=== PATIENT | female | born 1990 | race African-American/Black ===

== ENCOUNTER 2019-02-09 12:50 | Inpatient (IN) | payer MEDICAID ==
[~2019-02-09] VITALS: Ht 162.6 cm; Wt 81.6 kg
[2019-02-09 12:42] VITALS: BP 116/80
[~2019-02-09 12:50] MED LIST: Morphine Sulfate 4mg/ml Inj (IV USE ONLY) IVP ONE
--- NOTE | 2019-02-09 12:53 | Emergency Room Report ---
History of Present Illness General Chief Complaint: Abdominal Pain Source: Patient (Felix Melton) Present Illness HPI 28-year-old female patient presents the ER BIB ambulance complaining of abdominal pain, nausea, vomiting since this morning. Reports abdominal symptoms began this morning and then following eating a bowl of cereal she began to express vomiting and diarrhea symptoms. Denies blood in vomit or stool. Denies coffee-ground emesis. Reports generalized abdominal pain during this time. Reports pain is sharp. Denies radiation of pain symptoms. Denies recent travel outside the country. Denies recent abx use. Denies contacts at home with similar symptoms. Denies fever, chest pain, shortness of breath. Denies drug or marijuana use. Reports occasionally drinking alcohol, no recent alcohol use. Denies dysuria, hematuria, vaginal discharge. Denies vaginal bleeding. Reports last menstrual period was 1 month ago. States is sexually active, denies concern for STI. (Felix Melton) Allergies: Coded Allergies: No Known Allergies (Unverified , 02/09/19) Patient History Past Medical History: see triage record Last Menstrual Period: 01/08/19 Now: No : 1 Para: 1 Reviewed Nursing Documentation: PMH: Agreed; PSxH: Agreed (Felix Melton) Nursing Documentation-PMH Past Medical History: No Stated History (Felix Melton) Review of Systems All Other Systems: negative except mentioned in HPI (Felix Melton) Physical Exam Vital Signs Date Time Temp Pulse Resp B/P (MAP) Pulse Ox O2 Delivery O2 Flow Rate FiO2 02/09/19 12:34 98.8 70 16 112/82 100 Room Air Sp02 EP Interpretation: reviewed, normal General Appearance: well appearing, no apparent distress, alert, GCS 15, non- toxic Head: normocephalic, atraumatic Eyes: bilateral eye normal inspection, bilateral eye PERRL ENT: hearing grossly normal, normal pharynx, no angioedema, normal voice, uvula midline, moist mucus membranes Neck: full range of motion Respiratory: lungs clear, normal breath sounds, no rhonchi, no respiratory distress, no accessory muscle use, no wheezing, speaking full sentences Cardiovascular #1: regular rate, rhythm, no edema Gastrointestinal: soft, no mass, non-distended, no guarding, no pulsatile mass , no rebound, tenderness - Generalized, nonspecific, other - negative Bills Musculoskeletal: back normal, digits/nails normal, gait/station normal, normal range of motion, non-tender Neurologic: alert, oriented x3, responsive, motor strength/tone normal, sensory intact Psychiatric: mood/affect normal Skin: no rash (Felix Melton) Medical Decision Making PA Attestation Dr. Sepulveda is my supervising Physician whom patient management has been discussed with. (Felix Melton) Diagnostic Impression: Primary Impression: Acute colitis Additional Impressions: Vomiting and diarrhea Leukocytosis ER Course Pt. presents to the ED c/o abdominal pain, diarrhea and vomiting. Ddx considered but are not limited to UTI, cholelithiasis, cholecystitis, pancreatitis, appendicitis, diverticulitis, constipation, drug use, colitis, cyclical vomiting syndrome, SBO, influenza, viral syndrome. Begin abdominal pain workup. Provided patient with pain medication. Vital signs: are WNL, pt. is afebrile ORDERS: CBC, CMP, Lipase, UA, CT abdomen pelvis, Zofran, Pepcid and medication. ER COURSE: Provided with IV fluids. CBC elevated WBCs with left shift. CMP unremarkable Lipase WNL Serum HCG negative UA and urine drug screen pending Influenza swab negative Discuss results with patient CT abdomen and pelvis shows colitis, no appendicitis. Discussed results with patient. Will provide patient with antibiotics while in the ER for colitis due to elevated WBCs. Patient has been able to tolerate PO fluids while in the ER without emesis. Will admit patient. Discussed care with supervising physician Dr. Coates, consulted with admitting physician Dr. Shultz by who will admit patient to his service. Patient reports continued pain, provide with additional doses of pain and nausea medication. - Please note that this Emergency Department Report was dictated using [employer] technology software, occasionally this can lead to erroneous entry secondary to interpretation by the dictation equipment. Labs Test 02/09/19 12:57 02/09/19 14:15 White Blood Count 19.7 K/UL (4.8-10.8) Red Blood Count 4.90 M/UL (4.20-5.40) Hemoglobin 13.8 G/DL (12.0-16.0) Hematocrit 43.3 % (37.0-47.0) Mean Corpuscular Volume 88 FL (80-99) Mean Corpuscular Hemoglobin 28.2 PG (27.0-31.0) Mean Corpuscular Hemoglobin Concent 32.0 G/DL (32.0-36.0) Red Cell Distribution Width 14.4 % (11.6-14.8) Platelet Count 363 K/UL (150-450) Mean Platelet Volume 7.0 FL (6.5-10.1) Neutrophils (%) (Auto) % (45.0-75.0) Lymphocytes (%) (Auto) % (20.0-45.0) Monocytes (%) (Auto) % (1.0-10.0) Eosinophils (%) (Auto) % (0.0-3.0) Basophils (%) (Auto) % (0.0-2.0) Differential Total Cells Counted 100 Neutrophils % (Manual) 78 % (45-75) Lymphocytes % (Manual) 12 % (20-45) Monocytes % (Manual) 5 % (1-10) Eosinophils % (Manual) 0 % (0-3) Basophils % (Manual) 1 % (0-2) Band Neutrophils 4 % (0-8) Platelet Estimate Adequate Platelet Morphology Normal Red Blood Cell Morphology Hypochromasia 1+ Sodium Level 139 MMOL/L (136-145) Potassium Level 3.6 MMOL/L (3.5-5.1) Chloride Level 100 MMOL/L (98-107) Carbon Dioxide Level 21 MMOL/L (21-32) Anion Gap 18 mmol/L (5-15) Blood Urea Nitrogen 13 mg/dL (7-18) Creatinine 0.8 MG/DL (0.55-1.30) Estimat Glomerular Filtration Rate > 60 mL/min (>60) Glucose Level 156 MG/DL (74-106) Calcium Level 10.6 MG/DL (8.5-10.1) Total Bilirubin 0.6 MG/DL (0.2-1.0) Aspartate Amino Transf (AST/SGOT) 15 U/L (15-37) Alanine Aminotransferase (ALT/SGPT) 26 U/L (12-78) Alkaline Phosphatase 71 U/L (46-116) Total Protein 9.9 G/DL (6.4-8.2) Albumin 4.5 G/DL (3.4-5.0) Globulin 5.4 g/dL Albumin/Globulin Ratio 0.8 (1.0-2.7) Lipase 124 U/L (73-393) Human Chorionic Gonadotropin, Qual Negative (NEGATIVE) (Felix Melton) ER Course Patient is a 28-year-old female who presented after increased vomiting and diarrhea. Patient had been noted to have multiple episodes of vomiting as well as diarrhea throughout the day. Patient was noted to have elevated white blood count. CT the abdomen pelvis read by radiology showed likely colitis with a nonvisualize appendix.Patient was discussed with Dr. Jabari Pruitt for [facility] for inpatient management due to panel physician (Tha Coates MD) CT/MRI/US Diagnostic Results CT/MRI/US Diagnostic Results : Imaging Test Ordered: CT abdomen pelvis with contrast Impression 1. Underdistention and likely thickening in the colon. Consider some form of colitis in the proper clinical setting. 2. Appendix not identified. (Felix Melton) Last Vital Signs Date Time Temp Pulse Resp B/P (MAP) Pulse Ox O2 Delivery O2 Flow Rate FiO2 02/09/19 12:42 98.6 74 18 116/80 100 Room Air (Felix Melton) Status: improved (Tha Coates MD) Disposition: ADMITTED INPATIENT Condition: Serious Felix Melton Feb 09, 2019 12:53 Tha Coates MD Feb 09, 2019 18:32
[2019-02-09 13:12] LABS: HEMATOCRIT 43.3 % (37.0-47.0); HEMOGLOBIN 13.8 G/DL (12.0-16.0); MEAN CORPUSCULAR VOLUME 88 FL (80-99); PLATELET COUNT 363 K/UL (150-450); RED CELL DISTRIBUTION WIDTH 14.4 % (11.6-14.8); WHITE BLOOD COUNT 19.7 K/UL (4.8-10.8)
[2019-02-09 13:21] LABS: ANION GAP 18 mmol/L (5-15); BLOOD UREA NITROGEN 13 mg/dL (7-18); CALCIUM 10.6 MG/DL (8.5-10.1); CARBON DIOXIDE 21 MMOL/L (21-32); CHLORIDE 100 MMOL/L (98-107); CREATININE 0.8 MG/DL (0.55-1.30); POTASSIUM 3.6 MMOL/L (3.5-5.1); SODIUM 139 MMOL/L (136-145)
[2019-02-09 13:25] LABS: ALANINE AMINOTRANSFERASE 26 U/L (12-78); ALBUMIN 4.5 G/DL (3.4-5.0); ALBUMIN/GLOBULIN RATIO 0.8 (1.0-2.7); ALKALINE PHOSPHATASE 71 U/L (46-116); ASPARTATE AMINO TRANSFERASE 15 U/L (15-37); BILIRUBIN,TOTAL 0.6 MG/DL (0.2-1.0)
[2019-02-09] MEDS ORDERED: Morphine Sulfate 4mg/ml Inj (IV USE ONLY) IVP ONE ×3 (14:45→19:00)
[2019-02-09] MEDS ORDERED: Isovue-300 100ml vial INJ PRN (14:45)
[2019-02-09 14:50] VITALS: BP 128/90
[2019-02-09 16:50] VITALS: BP 119/78
--- NOTE | 2019-02-09 17:29 | Diagnostic Imaging Report ---
EXAM: CT Abdomen and Pelvis With Intravenous Contrast CLINICAL HISTORY: PAIN TECHNIQUE: Axial computed tomography images of the abdomen and pelvis with intravenous contrast. CTDI is 15.91 mGy and DLP is 8 75 mGy-cm. One or more of the following dose reduction techniques were used: automated exposure control, adjustment of the mA and/or kV according to patient size, use of iterative reconstruction technique. COMPARISON: No relevant prior studies available. FINDINGS: Lung bases: Unremarkable. ABDOMEN: Liver: Unremarkable. Gallbladder and bile ducts: No calcified stones. No ductal dilation. Pancreas: Unremarkable. Spleen: Unremarkable. Adrenals: Unremarkable. Kidneys and ureters: Unremarkable. No hydronephrosis. Stomach and bowel: Underdistention and likely thickening in the colon. PELVIS: Appendix: Appendix not identified. Bladder: Unremarkable. Reproductive: Unremarkable. ABDOMEN and PELVIS: Intraperitoneal space: Unremarkable. Bones/joints: No acute fracture. Soft tissues: Unremarkable. Vasculature: Unremarkable. No abdominal aortic aneurysm. Lymph nodes: No enlarged lymph nodes. IMPRESSION: 1. Underdistention and likely thickening in the colon. Consider some form of colitis in the proper clinical setting. 2. Appendix not identified.
[2019-02-09] MEDS ORDERED: Metoclopramide 10mg/2ml Inj IVP ONE (18:30)
[2019-02-09] MEDS ORDERED: Piperacillin/Tazobactam 3.375 GM in NS 110 ML IVPB ONE (18:30)
[2019-02-09 18:50] VITALS: BP 121/87
[2019-02-09] MEDS ORDERED: DiphenhydrAMINE 50mg/ml Inj IVP ONE (19:00)
[2019-02-09 21:26] VITALS: BP 142/79
--- NOTE | 2019-02-09 23:13 | History and Physical ---
History of Present Illness General Date patient seen: Feb 09, 2019 Time patient seen: 23:45 Reason for Hospitalization: Abdominal Pain Present Illness HPI CC: 28-year-old woman presents with abdominal pain, nausea, vomiting since this morning. She reports abdominal symptoms began this morning and then following eating a bowl of cereal she began to express nausea, vomiting and diarrhea. Denies blood in vomitus or stool. Denies coffee-ground emesis. Reports generalized abdominal pain during this time. Reports pain is sharp. Denies radiation of pain symptoms. Denies recent travel outside the country. Denies recent abx use. Denies contacts at home with similar symptoms. Denies fever, chest pain, shortness of breath. Denies drug or marijuana use. Reports occasionally drinking alcohol, no recent alcohol use. Denies dysuria, hematuria, vaginal discharge. Denies vaginal bleeding. Reports last menstrual period was 1 month ago. States is sexually active, denies concern for STI. PMHx: Asthma SHx: Occasional EtOH , no tobacco FHx:Reviewed; not pertinent for this encounter Allergies: Coded Allergies: No Known Allergies (Unverified , 02/09/19) Patient History History Provided By: Patient, EMS Healthcare decision maker Resuscitation status Full Code Advanced Directive on File No Review of Systems Constitutional: Reports: malaise, weakness Eye: Reports: no symptoms ENT: Reports: no symptoms Respiratory: Reports: no symptoms Gastrointestinal: Reports: abdominal pain, diarrhea, nausea, vomiting Genitourinary: Reports: no symptoms Musculoskeletal: Reports: joint pain Skin: Reports: no symptoms Psychiatric: Reports: no symptoms Neurological: Reports: no symptoms Endocrine: Reports: no symptoms Hematologic/Lymphatic: Reports: no symptoms All Other Systems: negative except mentioned in HPI Physical Exam General Appearance: lethargic, moderate distress Lines, tubes and drains: peripheral HEENT: normocephalic, atraumatic, anicteric, PERRL, no JVD Neck: non-tender, supple Respiratory/Chest: chest wall non-tender, lungs clear Cardiovascular/Chest: tachycardia Abdomen: no mass, decreased bowel sounds, distended, guarding, tender Extremities: normal range of motion Skin Exam: normal pigmentation 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 Lymphatic: anterior cervical, posterior cervical (L) Musculoskeletal: normal muscle bulk Last 24 Hour Vital Signs Date Time Temp Pulse Resp B/P (MAP) Pulse Ox O2 Delivery O2 Flow Rate FiO2 02/09/19 21:26 100.1 82 18 142/79 (100) 99 82 02/09/19 20:39 99.1 73 18 128/92 98 Room Air 02/09/19 19:29 99.1 02/09/19 18:50 98.3 67 16 121/87 100 Room Air 02/09/19 16:56 98.6 02/09/19 16:50 98.9 64 16 119/78 100 Room Air 02/09/19 15:24 98.6 02/09/19 14:50 98.9 68 16 128/90 100 Room Air 02/09/19 12:42 98.6 74 18 116/80 100 Room Air 02/09/19 12:42 74 18 Room Air 02/09/19 12:34 98.8 70 16 112/82 100 Room Air Laboratory Tests Test 02/09/19 12:57 02/09/19 14:15 White Blood Count 19.7 K/UL (4.8-10.8) H Red Blood Count 4.90 M/UL (4.20-5.40) Hemoglobin 13.8 G/DL (12.0-16.0) Hematocrit 43.3 % (37.0-47.0) Mean Corpuscular Volume 88 FL (80-99) Mean Corpuscular Hemoglobin 28.2 PG (27.0-31.0) Mean Corpuscular Hemoglobin Concent 32.0 G/DL (32.0-36.0) Red Cell Distribution Width 14.4 % (11.6-14.8) Platelet Count 363 K/UL (150-450) Mean Platelet Volume 7.0 FL (6.5-10.1) Neutrophils (%) (Auto) % (45.0-75.0) Lymphocytes (%) (Auto) % (20.0-45.0) Monocytes (%) (Auto) % (1.0-10.0) Eosinophils (%) (Auto) % (0.0-3.0) Basophils (%) (Auto) % (0.0-2.0) Differential Total Cells Counted 100 Neutrophils % (Manual) 78 % (45-75) H Lymphocytes % (Manual) 12 % (20-45) L Monocytes % (Manual) 5 % (1-10) Eosinophils % (Manual) 0 % (0-3) Basophils % (Manual) 1 % (0-2) Band Neutrophils 4 % (0-8) Platelet Estimate Adequate Platelet Morphology Normal Red Blood Cell Morphology Hypochromasia 1+ Sodium Level 139 MMOL/L (136-145) Potassium Level 3.6 MMOL/L (3.5-5.1) Chloride Level 100 MMOL/L (98-107) Carbon Dioxide Level 21 MMOL/L (21-32) Anion Gap 18 mmol/L (5-15) H Blood Urea Nitrogen 13 mg/dL (7-18) Creatinine 0.8 MG/DL (0.55-1.30) Estimat Glomerular Filtration Rate > 60 mL/min (>60) Glucose Level 156 MG/DL (74-106) H Calcium Level 10.6 MG/DL (8.5-10.1) H Total Bilirubin 0.6 MG/DL (0.2-1.0) Aspartate Amino Transf (AST/SGOT) 15 U/L (15-37) Alanine Aminotransferase (ALT/SGPT) 26 U/L (12-78) Alkaline Phosphatase 71 U/L (46-116) Total Protein 9.9 G/DL (6.4-8.2) H Albumin 4.5 G/DL (3.4-5.0) Globulin 5.4 g/dL Albumin/Globulin Ratio 0.8 (1.0-2.7) L Lipase 124 U/L (73-393) Human Chorionic Gonadotropin, Qual Negative (NEGATIVE) Microbiology Date/Time Source Procedure Growth Status 02/09/19 14:41 Nasal Nares Influenza Types A,B Antigen (MIRELLA) - Final Complete Height (Feet): 5 Height (Inches): 4.00 Weight (Pounds): 180 Medications Current Medications Medications (Trade) Dose Ordered Sig/Dona Route PRN Reason Start Time Stop Time Status Last Admin Dose Admin Iopamidol (Isovue-300 100ml) 100 ml NOW PRN INJ Radiology Procedure 02/09/19 14:45 Assessment/Plan Status: not improved Status Narrative 28 yo woman with N/V/D with leukocytosis on labs and CT scan notable for colitis Assessment/Plan #Abdominal pain #N/V/D #Colitis on CT #Leukocytosis #Sepsis of unclear etiology #Anion gap metabolic acidosis -CT results noted; possible colitis -Aggressive IVF's -Antiemetics as needed -Check cultures- blood, urine, stool -trend lactic acid -Source likely intrabdominal- follow abdominal exam closely as appendix not visualized -GI consult -continue IV antibiotics started in ED #Hypercalcemia -Likely secondary to dehydration -aggressive IVF's as above #Asthma, mild intermittent -well-controlled -Nebs as needed DVT Prophylaxis: SCD's, heparin Code Status: Full Hospital Classification declaration: Based on this initial evaluation and depending on the patient's clinical course I anticipate that this patient will require hospitalization for at least 2-3 days Disposition: Once the patient is stable to leave the hospital I anticipate the patient will likely be discharged to the following environment: Home I spent 70 minutes on this patients care and 36 minutes was dedicated to counseling and care coordination Time of note may not reflect time of encounter Jabari Pruitt MD Feb 09, 2019 23:13
--- NOTE | 2019-02-09 23:13 | History and Physical ---
History of Present Illness General Date patient seen: Feb 09, 2019 Reason for Hospitalization: Abdominal Pain Present Illness Allergies: Coded Allergies: No Known Allergies (Unverified , 02/09/19) Patient History Healthcare decision maker Resuscitation status Full Code Advanced Directive on File No Physical Exam Last 24 Hour Vital Signs Date Time Temp Pulse Resp B/P (MAP) Pulse Ox O2 Delivery O2 Flow Rate FiO2 02/09/19 21:26 100.1 82 18 142/79 (100) 99 82 02/09/19 20:39 99.1 73 18 128/92 98 Room Air 02/09/19 19:29 99.1 02/09/19 18:50 98.3 67 16 121/87 100 Room Air 02/09/19 16:56 98.6 02/09/19 16:50 98.9 64 16 119/78 100 Room Air 02/09/19 15:24 98.6 02/09/19 14:50 98.9 68 16 128/90 100 Room Air 02/09/19 12:42 98.6 74 18 116/80 100 Room Air 02/09/19 12:42 74 18 Room Air 02/09/19 12:34 98.8 70 16 112/82 100 Room Air Laboratory Tests Test 02/09/19 12:57 02/09/19 14:15 White Blood Count 19.7 K/UL (4.8-10.8) H Red Blood Count 4.90 M/UL (4.20-5.40) Hemoglobin 13.8 G/DL (12.0-16.0) Hematocrit 43.3 % (37.0-47.0) Mean Corpuscular Volume 88 FL (80-99) Mean Corpuscular Hemoglobin 28.2 PG (27.0-31.0) Mean Corpuscular Hemoglobin Concent 32.0 G/DL (32.0-36.0) Red Cell Distribution Width 14.4 % (11.6-14.8) Platelet Count 363 K/UL (150-450) Mean Platelet Volume 7.0 FL (6.5-10.1) Neutrophils (%) (Auto) % (45.0-75.0) Lymphocytes (%) (Auto) % (20.0-45.0) Monocytes (%) (Auto) % (1.0-10.0) Eosinophils (%) (Auto) % (0.0-3.0) Basophils (%) (Auto) % (0.0-2.0) Differential Total Cells Counted 100 Neutrophils % (Manual) 78 % (45-75) H Lymphocytes % (Manual) 12 % (20-45) L Monocytes % (Manual) 5 % (1-10) Eosinophils % (Manual) 0 % (0-3) Basophils % (Manual) 1 % (0-2) Band Neutrophils 4 % (0-8) Platelet Estimate Adequate Platelet Morphology Normal Red Blood Cell Morphology Hypochromasia 1+ Sodium Level 139 MMOL/L (136-145) Potassium Level 3.6 MMOL/L (3.5-5.1) Chloride Level 100 MMOL/L (98-107) Carbon Dioxide Level 21 MMOL/L (21-32) Anion Gap 18 mmol/L (5-15) H Blood Urea Nitrogen 13 mg/dL (7-18) Creatinine 0.8 MG/DL (0.55-1.30) Estimat Glomerular Filtration Rate > 60 mL/min (>60) Glucose Level 156 MG/DL (74-106) H Calcium Level 10.6 MG/DL (8.5-10.1) H Total Bilirubin 0.6 MG/DL (0.2-1.0) Aspartate Amino Transf (AST/SGOT) 15 U/L (15-37) Alanine Aminotransferase (ALT/SGPT) 26 U/L (12-78) Alkaline Phosphatase 71 U/L (46-116) Total Protein 9.9 G/DL (6.4-8.2) H Albumin 4.5 G/DL (3.4-5.0) Globulin 5.4 g/dL Albumin/Globulin Ratio 0.8 (1.0-2.7) L Lipase 124 U/L (73-393) Human Chorionic Gonadotropin, Qual Negative (NEGATIVE) Microbiology Date/Time Source Procedure Growth Status 02/09/19 14:41 Nasal Nares Influenza Types A,B Antigen (MIRELLA) - Final Complete Height (Feet): 5 Height (Inches): 4.00 Weight (Pounds): 180 Medications Current Medications Medications (Trade) Dose Ordered Sig/Dona Route PRN Reason Start Time Stop Time Status Last Admin Dose Admin Iopamidol (Isovue-300 100ml) 100 ml NOW PRN INJ Radiology Procedure 02/09/19 14:45 Jabari Pruitt MD Feb 09, 2019 23:13
[2019-02-09] MEDS ORDERED: Metoclopramide 10mg/2ml Inj IVP PRN (23:30)
[2019-02-09] MEDS: Morphine Sulfate 2mg/ml Inj(IV/IM USE ONLY) IVP PRN (23:43)
[2019-02-10] VITALS: BP 130/69
[2019-02-10] MEDS: Metoclopramide 10mg/2ml Inj IVP PRN ×2 (02:38→10:48)
[2019-02-10 04:00] VITALS: BP 132/72
[2019-02-10] MEDS: Morphine Sulfate 2mg/ml Inj(IV/IM USE ONLY) IVP PRN (04:05)
[2019-02-10 04:34] LABS: APPEARANCE,URINE CLEAR; BILIRUBIN, URINE NEGATIVE (NEGATIVE); COLOR,URINE PALE YELLOW; GLUCOSE, URINE (UA) NEGATIVE (NEGATIVE); KETONES,URINE 4+ (NEGATIVE); LEUKOCYTE ESTERASE ,URINE 1+ (NEGATIVE); NITRITE,URINE NEGATIVE (NEGATIVE); PH,URINE 6 (4.5-8.0); PROTEIN,URINE 2+ (NEGATIVE); UROBILINOGEN,URINE NORMAL MG/DL (0.0-1.0)
[2019-02-10 08:00] VITALS: BP 143/84
[2019-02-10] MEDS: Morphine Sulfate 4mg/ml Inj (IV USE ONLY) IVP PRN ×4 (08:11→22:13)
[2019-02-10 09:22] LABS: HEMATOCRIT 36.8 % (37.0-47.0); MEAN CORPUSCULAR VOLUME 89 FL (80-99); PLATELET COUNT 349 K/UL (150-450); RED BLOOD COUNT 4.14 M/UL (4.20-5.40); RED CELL DISTRIBUTION WIDTH 14.7 % (11.6-14.8)
[2019-02-10 09:23] LABS: WHITE BLOOD COUNT 24.2 K/UL (4.8-10.8)
[2019-02-10 09:34] LABS: ANION GAP 13 mmol/L (5-15); BLOOD UREA NITROGEN 12 mg/dL (7-18); CALCIUM 9.1 MG/DL (8.5-10.1); CARBON DIOXIDE 24 MMOL/L (21-32); CHLORIDE 104 MMOL/L (98-107); CREATININE 0.7 MG/DL (0.55-1.30); POTASSIUM 3.2 MMOL/L (3.5-5.1); SODIUM 140 MMOL/L (136-145)
[2019-02-10 12:00] VITALS: BP 139/76
[2019-02-10] MEDS ORDERED: Piperacillin/Tazobactam 3.375 GM in NS 110 ML IVPB SCH (12:00)
--- NOTE | 2019-02-10 12:54 | General Progress Note ---
Assessment/Plan Assessment/Plan GI CONSULT Dictated Acute gastroenteritis, with leukocytosis Healthcare worker Rec: Change abx to IV cipro/flagyl, stool w/u Thank you P MD Rosibel Subjective Allergies: Coded Allergies: No Known Allergies (Unverified , 02/09/19) Objective Last 24 Hour Vital Signs Date Time Temp Pulse Resp B/P (MAP) Pulse Ox O2 Delivery O2 Flow Rate FiO2 02/10/19 12:00 99.8 94 20 139/76 (97) 98 02/10/19 09:00 Room Air 02/10/19 08:00 99.2 79 20 143/84 (103) 100 02/10/19 05:24 100.6 02/10/19 04:35 100.1 02/10/19 04:00 100.6 83 20 132/72 (92) 100 02/10/19 00:00 99.3 65 18 130/69 (89) 96 02/09/19 21:59 Room Air 02/09/19 21:29 Room Air 02/09/19 21:26 100.1 82 18 142/79 (100) 99 82 02/09/19 20:39 99.1 73 18 128/92 98 Room Air 02/09/19 19:29 99.1 02/09/19 18:50 98.3 67 16 121/87 100 Room Air 02/09/19 16:56 98.6 02/09/19 16:50 98.9 64 16 119/78 100 Room Air 02/09/19 15:24 98.6 02/09/19 14:50 98.9 68 16 128/90 100 Room Air Intake and Output 02/09/19 02/10/19 18:59 06:59 Intake Total 750 ml Output Total 852 ml Balance -102 ml Intake IV Total 750 ml Output Urine Total 700 ml Gastric Drainage Total 150 ml Emesis 2 ml # Voids 1 6 Laboratory Tests 02/09/19 12:57: White Blood Count 19.7H, Red Blood Count 4.90, Hemoglobin 13.8, Hematocrit 43.3 , Mean Corpuscular Volume 88, Mean Corpuscular Hemoglobin 28.2, Mean Corpuscular Hemoglobin Concent 32.0, Red Cell Distribution Width 14.4, Platelet Count 363, Mean Platelet Volume 7.0, Neutrophils (%) (Auto) , Lymphocytes (%) ( Auto) , Monocytes (%) (Auto) , Eosinophils (%) (Auto) , Basophils (%) (Auto) , Differential Total Cells Counted 100, Neutrophils % (Manual) 78H, Lymphocytes % (Manual) 12L, Monocytes % (Manual) 5, Eosinophils % (Manual) 0, Basophils % ( Manual) 1, Band Neutrophils 4, Platelet Estimate Adequate, Platelet Morphology Normal, Red Blood Cell Morphology , Hypochromasia 1+, Sodium Level 139, Potassium Level 3.6, Chloride Level 100, Carbon Dioxide Level 21, Anion Gap 18H , Blood Urea Nitrogen 13, Creatinine 0.8, Estimat Glomerular Filtration Rate > 60, Glucose Level 156H, Calcium Level 10.6H, Total Bilirubin 0.6, Aspartate Amino Transf (AST/SGOT) 15, Alanine Aminotransferase (ALT/SGPT) 26, Alkaline Phosphatase 71, Total Protein 9.9H, Albumin 4.5, Globulin 5.4, Albumin/Globulin Ratio 0.8L, Lipase 124 02/09/19 14:15: Human Chorionic Gonadotropin, Qual Negative 02/10/19 04:05: Urine Color Pale yellow, Urine Appearance Clear, Urine pH 6, Urine Specific [place] 1.020, Urine Protein 2+H, Urine Glucose (UA) Negative, Urine Ketones 4+H , Urine Blood 1+H, Urine Nitrite Negative, Urine Bilirubin Negative, Urine Urobilinogen Normal, Urine Leukocyte Esterase 1+H, Urine RBC 2-4H, Urine WBC 2-4 , Urine Squamous Epithelial Cells ModerateH, Urine Bacteria Few, Urine HCG, Qualitative Negative 02/10/19 08:32: White Blood Count 24.2*H, Red Blood Count 4.14L, Hemoglobin 12.0, Hematocrit 36.8L, Mean Corpuscular Volume 89, Mean Corpuscular Hemoglobin 28.9, Mean Corpuscular Hemoglobin Concent 32.5, Red Cell Distribution Width 14.7, Platelet Count 349, Mean Platelet Volume 7.8, Neutrophils (%) (Auto) , Lymphocytes (%) ( Auto) , Monocytes (%) (Auto) , Eosinophils (%) (Auto) , Basophils (%) (Auto) , Differential Total Cells Counted 100, Neutrophils % (Manual) 80H, Lymphocytes % (Manual) 16L, Monocytes % (Manual) 4, Eosinophils % (Manual) 0, Basophils % ( Manual) 0, Band Neutrophils 0, Platelet Estimate Adequate, Platelet Morphology Normal, Sodium Level 140, Potassium Level 3.2L, Chloride Level 104, Carbon Dioxide Level 24, Anion Gap 13, Blood Urea Nitrogen 12, Creatinine 0.7, Estimat Glomerular Filtration Rate > 60, Glucose Level 107H, Calcium Level 9.1, Anisocytosis 1+, Lactic Acid Level 0.90 Height (Feet): 5 Height (Inches): 4.00 Weight (Pounds): 180 Vic Gleason MD Feb 10, 2019 12:54
--- NOTE | 2019-02-10 15:44 | General Progress Note ---
Assessment/Plan Status: not improved Status Narrative 28 yo woman with N/V/D with leukocytosis on labs and CT scan notable for colitis Assessment/Plan #Abdominal pain #N/V/D #Colitis on CT #Leukocytosis #Sepsis of unclear etiology #Anion gap metabolic acidosis -CT results noted; possible colitis -Aggressive IVF's -Antiemetics as needed -Check cultures- blood, urine, stool -trend lactic acid- normalized -Source likely intrabdominal- follow abdominal exam closely as appendix not visualized -GI consulted- recs appreciated -continue IV ciprofloxacin and metronidazole -f/u stool studies #Hypokalemia -replete aggressively as needed -monitor magnesium levels as well and replete PRN #Hypercalcemia -Likely secondary to dehydration -aggressive IVF's as above #Asthma, mild intermittent -well-controlled -Nebs as needed DVT Prophylaxis: SCD's, heparin Code Status: Full Disposition: Once the patient is stable to leave the hospital, I anticipate the patient will likely be discharged to the following environment:Home I spent 45 minutes on this patient's case, and 24minutes was dedicated to counseling and/or care coordination. Time of note may not reflect time of encounter. Subjective Date patient seen: Feb 10, 2019 Time patient seen: 15:22 ROS Limited/Unobtainable: No Constitutional: Reports: malaise, weakness HEENT: Reports: no symptoms Cardiovascular: Reports: no symptoms Respiratory: Reports: no symptoms Gastrointestinal/Abdominal: Reports: abdomen distended, abdominal pain, nausea , poor appetite, vomiting Genitourinary: Reports: no symptoms Neurologic/Psychiatric: Reports: no symptoms Endocrine: Reports: no symptoms Hematologic/Lymphatic: Reports: no symptoms Allergies: Coded Allergies: No Known Allergies (Unverified , 02/09/19) All Systems: reviewed and negative except above Subjective Events of overnight noted Chart reviewed by me Patient with persistent abdominal discomfort and N/V Tachycardia improving Objective Last 24 Hour Vital Signs Date Time Temp Pulse Resp B/P (MAP) Pulse Ox O2 Delivery O2 Flow Rate FiO2 02/10/19 12:00 99.8 94 20 139/76 (97) 98 02/10/19 09:00 Room Air 02/10/19 08:00 99.2 79 20 143/84 (103) 100 02/10/19 05:24 100.6 02/10/19 04:35 100.1 02/10/19 04:00 100.6 83 20 132/72 (92) 100 02/10/19 00:00 99.3 65 18 130/69 (89) 96 02/09/19 21:59 Room Air 02/09/19 21:29 Room Air 02/09/19 21:26 100.1 82 18 142/79 (100) 99 82 02/09/19 20:39 99.1 73 18 128/92 98 Room Air 02/09/19 19:29 99.1 02/09/19 18:50 98.3 67 16 121/87 100 Room Air 02/09/19 16:56 98.6 02/09/19 16:50 98.9 64 16 119/78 100 Room Air Intake and Output 02/09/19 02/10/19 18:59 06:59 Intake Total 750 ml Output Total 852 ml Balance -102 ml Intake IV Total 750 ml Output Urine Total 700 ml Gastric Drainage Total 150 ml Emesis 2 ml # Voids 1 6 Laboratory Tests 02/10/19 04:05: Urine Color Pale yellow, Urine Appearance Clear, Urine pH 6, Urine Specific Franklin 1.020, Urine Protein 2+H, Urine Glucose (UA) Negative, Urine Ketones 4+H , Urine Blood 1+H, Urine Nitrite Negative, Urine Bilirubin Negative, Urine Urobilinogen Normal, Urine Leukocyte Esterase 1+H, Urine RBC 2-4H, Urine WBC 2-4 , Urine Squamous Epithelial Cells ModerateH, Urine Bacteria Few, Urine HCG, Qualitative Negative 02/10/19 08:32: White Blood Count 24.2*H, Red Blood Count 4.14L, Hemoglobin 12.0, Hematocrit 36.8L, Mean Corpuscular Volume 89, Mean Corpuscular Hemoglobin 28.9, Mean Corpuscular Hemoglobin Concent 32.5, Red Cell Distribution Width 14.7, Platelet Count 349, Mean Platelet Volume 7.8, Neutrophils (%) (Auto) , Lymphocytes (%) ( Auto) , Monocytes (%) (Auto) , Eosinophils (%) (Auto) , Basophils (%) (Auto) , Differential Total Cells Counted 100, Neutrophils % (Manual) 80H, Lymphocytes % (Manual) 16L, Monocytes % (Manual) 4, Eosinophils % (Manual) 0, Basophils % ( Manual) 0, Band Neutrophils 0, Platelet Estimate Adequate, Platelet Morphology Normal, Anisocytosis 1+, Sodium Level 140, Potassium Level 3.2L, Chloride Level 104, Carbon Dioxide Level 24, Anion Gap 13, Blood Urea Nitrogen 12, Creatinine 0.7, Estimat Glomerular Filtration Rate > 60, Glucose Level 107H, Lactic Acid Level 0.90, Calcium Level 9.1 Height (Feet): 5 Height (Inches): 4.00 Weight (Pounds): 180 General Appearance: alert, mild distress EENT: PERRL/EOMI, normal ENT inspection, TMs normal, pharynx normal Neck: non-tender Cardiovascular: normal peripheral pulses, tachycardia Respiratory/Chest: chest wall non-tender, lungs clear Abdomen: soft, hypoactive bowel sounds, tender Pelvis: normal external exam Extremities: normal range of motion Edema: no edema noted Leg (L), no edema noted Leg (R) Neurologic: janitor supervisor II-XII grossly normal Skin: normal pigmentation, warm/dry Lymphatic: normal anterior cervical (L), normal anterior cervical (R) Jabari Pruitt MD Feb 10, 2019 15:44
[2019-02-10 16:00] VITALS: BP 127/71
--- NOTE | 2019-02-10 17:15 | Consultation ---
DATE OF CONSULTATION: 02/10/2019 GASTROENTEROLOGY CONSULTATION REPORT CHIEF COMPLAINT: I was asked to see this patient by Dr. Belkis Shultz for evaluation of gastrointestinal symptoms. 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, who comes in with one-day history of nausea, vomiting, diarrhea, and abdominal pain. She also had some fevers to palpation. She has had no contacts with diarrheal illness. She noted that she does not have any sick patch. She has not been on any antibiotics lately. She has had no recent trips outside of the city. She has no family history of inflammatory bowel disease. PAST MEDICAL HISTORY: History of asthma. FAMILY HISTORY: Negative. SOCIAL HISTORY: The patient is single. She has one child. She does not smoke and drinks occasionally. MEDICATIONS: None. REVIEW OF SYSTEMS: Otherwise negative. PHYSICAL EXAMINATION: GENERAL: Well-developed, well-nourished woman, seen in her room. HEENT: Normocephalic and atraumatic. Sclerae anicteric. NECK: Supple. CHEST: Clear to auscultation. CARDIOVASCULAR: Revealed regular rate. ABDOMEN: Soft, but mildly tender to palpation diffusely without guarding, rebound, or masses. EXTREMITIES: Revealed no edema. LABORATORY AND DIAGNOSTIC DATA: Laboratory data were noted. Imaging studies were reviewed. ASSESSMENT: This patient presents with acute case of nausea, vomiting, and diarrhea. She does have some degree of leukocytosis, which is consistent with acute illness. The CT scan shows some degree of colonic thickening, but this may be due to colonic under distention. She has also some low-grade fevers, which is again consistent with acute febrile illness. As such, I would treat her with antibiotics especially since she works at the [employer] and is exposed to the patient's. I will check her stool for ova and parasites, culture, and Clostridium difficile. In the meantime, I would start her on the ciprofloxacin and Flagyl for typical bowel dennys. If there are any pathogens identified and cultured, then antibiotics should be performed. Her diet can be continued as tolerated orally. Further recommendations will be based on results obtained. RECOMMENDATIONS: Per above discussion and per orders written in the chart. Thank you for asking me to participate in care of this patient. Vic Gleason M.D. DR: Herson JOB#: [id number] CC:
[2019-02-10 20:00] VITALS: BP 131/77
[2019-02-11] VITALS: BP 146/83
[2019-02-11] MEDS: Metoclopramide 10mg/2ml Inj IVP PRN ×2 (02:36→10:52)
[2019-02-11] MEDS: Morphine Sulfate 4mg/ml Inj (IV USE ONLY) IVP PRN ×2 (02:37→06:42)
[2019-02-11 04:00] VITALS: BP 138/88
--- NOTE | 2019-02-11 09:04 | General Progress Note ---
Assessment/Plan Assessment/Plan #Sepsis #Abdominal pain #N/V/D #Colitis #Anion gap metabolic acidosis -symptoms persist -continue IV fluids and supportive measures -Antiemetics as needed -Stool studies sent today -continue IV ciprofloxacin and metronidazole -GI following #Hypokalemia -replete aggressively as needed -monitor magnesium levels as well and replete PRN #Hypercalcemia -Likely secondary to dehydration -aggressive IVF's as above #Asthma, mild intermittent -well-controlled -Nebs as needed DVT Prophylaxis: SCD's, heparin Code Status: Full I spent 45 minutes on this patient's case, and 24minutes was dedicated to counseling and/or care coordination. Time of note may not reflect time of encounter. Subjective Date patient seen: Feb 11, 2019 Time patient seen: 08:45 ROS Limited/Unobtainable: No Constitutional: Denies: chills, fever Cardiovascular: Denies: chest pain Respiratory: Denies: cough, orthopnea Gastrointestinal/Abdominal: Reports: abdominal pain, diarrhea, nausea, poor fluid intake, vomiting Genitourinary: Denies: burning Neurologic/Psychiatric: Denies: anxiety Allergies: Coded Allergies: No Known Allergies (Unverified , 02/09/19) Subjective Medicine follow up for sepsis and acute gastroenteritis, possible acute colitis. Persistent nausea, vomiting, diarrhea. Mld diffuse abdominal pain. Stool samples provided this AM Objective Last 24 Hour Vital Signs Date Time Temp Pulse Resp B/P (MAP) Pulse Ox O2 Delivery O2 Flow Rate FiO2 02/11/19 07:12 98.6 02/11/19 04:00 98.3 77 20 138/88 (105) 98 02/11/19 00:00 98.6 66 20 146/83 (104) 98 02/10/19 21:00 Room Air 02/10/19 20:00 99.1 77 20 131/77 (95) 97 02/10/19 16:00 99.4 75 20 127/71 (89) 97 02/10/19 12:00 99.8 94 20 139/76 (97) 98 Intake and Output 02/10/19 02/11/19 19:00 07:00 Intake Total 695 ml 1760 ml Output Total 100 ml Balance 695 ml 1660 ml Intake Oral 120 ml 460 ml IV Total 575 ml 1300 ml Emesis 100 ml # Voids 1 2 # Bowel Movements 1 Height (Feet): 5 Height (Inches): 4.00 Weight (Pounds): 180 General Appearance: no apparent distress, alert Neck: supple, normal inspection Cardiovascular: normal rate, regular rhythm Respiratory/Chest: lungs clear, normal breath sounds, no respiratory distress Abdomen: normal bowel sounds, soft, no organomegaly, no mass, other - Mild diffuse tenderness Neurologic: no motor/sensory deficits, alert, oriented x 3 Skin: normal pigmentation, warm/dry Franco Jean MD Feb 11, 2019 09:04
[2019-02-11] MEDS: Morphine Sulfate 2mg/ml Inj(IV/IM USE ONLY) IVP PRN ×2 (11:30→16:15)
--- NOTE | 2019-02-11 11:47 | GI Progress Note ---
Assessment/Plan Problems: (1) Gastroenteritis ICD Codes: K52.9 - Noninfective gastroenteritis and colitis, unspecified SNOMED: 83124749 (2) Vomiting and diarrhea ICD Codes: R11.10 - Vomiting, unspecified; R19.7 - Diarrhea, unspecified SNOMED: 831067109 (3) Acute colitis ICD Codes: K52.9 - Noninfective gastroenteritis and colitis, unspecified SNOMED: 36952605, 465122563 (4) Leukocytosis ICD Codes: D72.829 - Elevated white blood cell count, unspecified SNOMED: 389459368, 062564423 Status: stable Status Narrative Discussed with Dr. Cristobal Assessment/Plan CT scan show some degree of colonic thinning, but this may be due to colonic underdistention Leukocytosis Okay to advance to regular diet IV and p.o. hydration Electrolyte correction Stool studies, O&P, CT differential to rule out infectious causes Prophylactic antibiotics Zofran as needed, Reglan for persistent vomiting follow labs The patient was seen and examined at bedside and all new and available data was reviewed in the patients chart. I agree with the above findings, impression and plan. (Patient seen earlier today. Signature stamp does not reflect patient encounter time.). - Jonathan Cristobal MD Subjective Subjective The patient still has complaint of nausea and vomiting Abdominal pain Wanted to go home Objective Last 24 Hour Vital Signs Date Time Temp Pulse Resp B/P (MAP) Pulse Ox O2 Delivery O2 Flow Rate FiO2 02/11/19 09:00 Room Air 02/11/19 07:12 98.6 02/11/19 04:00 98.3 77 20 138/88 (105) 98 02/11/19 00:00 98.6 66 20 146/83 (104) 98 02/10/19 21:00 Room Air 02/10/19 20:00 99.1 77 20 131/77 (95) 97 02/10/19 16:00 99.4 75 20 127/71 (89) 97 02/10/19 12:00 99.8 94 20 139/76 (97) 98 Intake and Output 02/10/19 02/11/19 19:00 07:00 Intake Total 695 ml 1760 ml Output Total 100 ml Balance 695 ml 1660 ml Intake Oral 120 ml 460 ml IV Total 575 ml 1300 ml Emesis 100 ml # Voids 1 2 # Bowel Movements 1 Height (Feet): 5 Height (Inches): 4.00 Weight (Pounds): 180 General Appearance: WD/WN, no apparent distress, alert Cardiovascular: normal rate Respiratory/Chest: normal breath sounds, no respiratory distress Abdominal Exam: normal bowel sounds, non tender, soft Extremities: normal range of motion, non-tender Xiomy Barber NP Feb 11, 2019 11:47
[2019-02-11] MEDS ORDERED: Metoclopramide 10mg/2ml Inj IVP PRN (12:00)
[2019-02-11] MEDS ORDERED: Metoclopramide 10mg/10ml Liq NG PRN ×2 (12:00)
[2019-02-11 16:00] VITALS: BP 136/74
[2019-02-11] MEDS ORDERED: Tubing IV Secondary IV ONE (19:54)
--- NOTE | 2019-02-13 14:07 | Discharge Summary ---
Discharge Summary Discharge Summary _ DATE OF ADMISSION: 02/09/2019 DATE OF DISCHARGE: 02/11/2019 Patient left AGAINST MEDICAL ADVICE: REASON FOR ADMISSION: 28 years old female, 1, para 1, with no otherwise significant past medical history except mild intermittent asthma, presented to emergency department with complaint of abdominal pain, nausea and vomiting since morning. Patient denied blood in vomiting or stool. She denied coffee-ground emesis. Patient reported sharp, generalized, diffuse abdominal pain without radiation. Patient denied recent traveling outside of the country. Patient denied recent antibiotic use. She denied fever and chills. Patient denied chest pain, shortness of breath. Patient denied illicit drug use and marijuana use. Last menstrual period about a month ago. Patient denied concern for sexually transmitted disease. Upon evaluation vital signs were stable. Laboratory workup revealed leukocytosis WBC 19.7. Neutrophils 78% Anion gap 18. Calcium 10.6. Stable renal parameters and electrolytes. Urine and serum test negative. Urinalysis revealed plus +4 ketones ,+2 protein, +1 blood, but no evidence of urinary tract infection. Rapid influenza screen test was negative. CT of the abdomen and pelvis demonstrated underdistention and likely thickening in the colon. Consider some form of colitis in the proper clinical setting. Appendix was not identified. In the emergency department patient started on the IV fluids. Patient started on empiric antibiotic and admitted for further management. CONSULTANTS: GI specialist Dr. Gleason [facility] COURSE: Patient admitted to medical surgical floor. Patient started on aggressive IV hydration and broad-spectrum antibiotics. Supportive care provided. Pain management was addressed. Antiemetic provided as needed. GI consult was requested. DVT prophylaxis provided. Blood cultures were negative. Rapid influenza screen test was negative. Urine culture revealed mixed gram-positive organisms. Stool for C. difficile was negative. Stool culture was negative. Initial low-grade fever resolved. Leukocytosis up to 24.2. GI specialist seen and evaluated patient. Per GI specialist, patient had acute gastroenteritis with leukocytosis. 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 GI specialist changed antibiotic to IV Cipro and Flagyl. Diet was slowly advanced. Patient was able to tolerate diet. Pulmonary toilet and supplemental oxygen were on board as needed. No evidence of asthma exacerbation. Respiratory status remained stable. Renal parameters and electrolytes were closely monitored, electrolytes corrected as needed, nephrotoxins were avoided. Hypercalcemia resolved the next day ,likely was due to severe dehydration. Anion gap metabolic acidosis resolved the next day , likely was due to vomiting and dehydration . Patient felt better and decided to leave AGAINST MEDICAL ADVICE. The risks and consequences of signing AGAINST MEDICAL ADVICE were discussed with patient in detail. Patient verbalized understanding, nevertheless signed AMA form and left. FINAL DIAGNOSES: Acute gastroenteritis with leukocytosis Possible acute colitis Anion gap metabolic acidosis Hypokalemia Hypercalcemia -resolved Mild intermittent asthma -stable I have been assigned to dictate discharge summary for this account. I was not involved in the patient's management. Lashaun Mcmahan NP Feb 13, 2019 14:07
== END 2019-02-11 19:55 | disposition left against medical advice (07) | DRG 249 ==
LOC: EDBD 12:50 → EMR 13:20 → EDBEDREQ 20:20 → 3E 21:12
DX: K52.9 Noninfective gastroenteritis and colitis, unspecified (principal); E87.2 Acidosis; E78.5 Hyperlipidemia, unspecified; E86.0 Dehydration; J45.20 Mild intermittent asthma, uncomplicated; E87.6 Hypokalemia
CPT/HCPCS: 36415; 74177; 80048; 80053; 81003; 81025; 83605; 83690; 84703; 85007; 85025; 86710; 87040; 87045; 87086; 87324; 96361; 96365; 96375; 96376; 99285; J2405; J2765